=== PATIENT | female | born 1955 | race Caucasian/White ===

== ENCOUNTER → 2016-08-16 | Outpatient (CLI) | payer BC ==
[~2016-08-16] MED LIST: ADDERALL PO; ALEVE; CONCERTA PO; EFFEXOR XR PO; FOCALIN10 MG PO; ZOLOFT PO
--- NOTE | ~2016-08-16 | CR58 ---
[facility] A Service of [facility] RADIOLOGY TEXT RESULTS PATIENT: LEFTY BLANCHARD I LOCATION: [facility] : 53 UNIT #: [id number] AGE: [address]: DARLENE KAISER APRN SEX: F ORDER DR: [id number] [facility] [address] [place], [place] [address] [id number] O MR#: [id number] Acc #: [id number] NAME: LEFTY BLANCHARD I. : 1955 SEX: F STUDY DATE/TIME: 08/16/2016 15:00 UNIT: [facility] ROOM: STUDY DESCRIPTION: CR Cervical Spine 2 or 3 Views Attending Physician: Darlene Kaiser A.P.R.N. Referring Physician: Darlene Kaiser A.P.R.N. Ordering Physician: Darlene Kaiser A.P.R.N. Primary Care Physician: Rosalia Reyez M.D. MEDICAL IMAGING REPORT This report is preliminary unless electronic signature is present EXAM cervical spine series HISTORY Neck pain since late June 13, 2016. Previous cervical fusion. COMPARISON 09/01/2014 TECHNIQUE Three views of the cervical spine were obtained. FINDINGS Postoperative changes of anterior fusion are seen from C3 to C5 with a ventral bone plate and screws. Alignment is satisfactory. Moderate disc space narrowing is seen at the adjacent C5-6 and at the C6-7 discs. The degree of degenerative change is stable since the preoperative study. Posterior facet arthropathy is noted to a moderate degree and has not changed. No hardware complications. No new lesions are seen. IMPRESSION Satisfactory postop appearance following anterior fusion. Degenerative disc and facet disease elsewhere is stable since the previous exam. Dictated by... Monroe Nichols M.D. THIS IS AN ELECTRONICALLY VERIFIED REPORT Monroe Nichols M.D. at 08/17/2016 9:35 AM RLF/lio TD: 08/17/2016 08:01 JOB #: [id number] [facility] A Service of [facility] RADIOLOGY TEXT RESULTS PATIENT: LEFTY BLANCHARD I LOCATION: [facility] #: [id number] : 53 UNIT #: [id number] AGE: [address]: DARLENE KAISER APRN SEX: F ORDER DR: MEDICAL IMAGING REPORT Page 1 of 1 COPY
== END | disposition home or self-care (01) ==
LOC: CRAD 14:44
DX: M50.30 Other cervical disc degeneration, unspecified cervical region (principal); Z98.1 Arthrodesis status
CPT/HCPCS: 72040